=== PATIENT | female | born 1950 | race Two or more races ===

== ENCOUNTER 2024-03-24 08:29 | Emergency (ER) | payer MEDICARE, MEDICAID ==
[~2024-03-24] VITALS: Ht 172.7 cm; Wt 113.4 kg
[2024-03-24 09:24] LABS: Basophils # (auto) 0.1 10 ^3/uL (0-0.2); Eosinophils # (auto) 0.3 10 ^3/uL (0-0.8); Eosinophils % (auto) 4.6 % (0.0-7.0); Hematocrit 45.4 % (36.0-46.0); Hemoglobin 14.8 g/dL (12.2-16.2); Lymphocytes % (auto) 32.3 % (10.0-50.0); Mean Corpuscular Hgb Conc. 32.7 g/dL (32.0-36.0); Mean Corpuscular Volume 85.7 fL (80.0-100.0); Monocytes # (auto) 0.4 10 ^3/uL (0-1.3); Monocytes % (auto) 7.2 % (0.0-12.0); Neutrophils # (auto) 3.3 10 ^3/uL (1.6-8.6); Neutrophils % (auto) 54.9 % (37.0-80.0); Nucleated Red Blood Cells % 0.1 %; Platelet Count (auto) 315 10^3/uL (140-450); Red Blood Cells 5.29 10^6/uL (4.0-5.20); Red Cell Distribution Width 13.7 % (11.8-14.3); White Blood Cell 6.1 10^3/uL (4.4-10.8)
[2024-03-24 09:39] LABS: Alanine Aminotransferase 19 U/L (7-40); Albumin 4.3 g/dL (3.2-4.8); Alkaline Phosphatase 97 U/L (46-116); Anion Gap 3 (5-15); Aspartate Aminotransferase 14 U/L (13-40); BUN/Creatinine Ratio 19.5 (10.0-20.0); Bilirubin, Total 0.6 mg/dL (0.2-1.0); Blood Urea Nitrogen 15 mg/dL (9-23); Calcium 10.5 mg/dL (8.7-10.4); Carbon Dioxide 30 mmol/L (20-31); Chloride 108 mmol/L (98-107); Glucose 85 mg/dL (74-106); Potassium 4.1 mmol/L (3.5-5.1); Sodium 141 mmol/L (136-145); Total Protein 7.5 g/dL (5.7-8.2)
[2024-03-24 11:26] VITALS: BP 137/74; PULSE 61; RESP 16; TEMP 98.6; O2SAT 96
== END 2024-03-24 11:33 | disposition home or self-care (01) ==
LOC: ER 08:29
DX: R51.9 Headache, unspecified (principal); Z90.49 Acquired absence of other specified parts of digestive tract; Z79.899 Other long term (current) drug therapy
CPT/HCPCS: 36415; 70450; 80053; 82962; 84484; 85025; 93005